=== PATIENT | female | born 1985 | race Caucasian/White ===

== ENCOUNTER 2020-02-16 19:51 | Emergency (ER) | payer OTHER ==
[~2020-02-16] VITALS: Ht 165.1 cm; Wt 76.2 kg
[2020-02-16 19:54] VITALS: BP 132/81
[2020-02-16] MEDS ORDERED: LIDOCAINE-MPF 1%, 5ML ONE (20:43)
[2020-02-16] MEDS ORDERED: LIDOCAINE 1%, 10ML INFIL ONE (21:00)
== END 2020-02-16 21:39 | disposition home or self-care (01) ==
LOC: ED 20:38
DX: S61.210A Laceration without foreign body of right index finger without damage to nail, initial encounter (principal); W26.0XXA Contact with knife, initial encounter; Y93.89 Activity, other specified; Y92.009 Unspecified place in unspecified non-institutional (private) residence as the place of occurrence of the external cause; Y99.8 Other external cause status
CPT/HCPCS: 12041; 99284